=== PATIENT | female | born 1985 | race African-American/Black ===

== ENCOUNTER 2020-04-16 08:53 | Emergency (ER) | payer MEDICAID ==
[~2020-04-16] VITALS: Ht 162.6 cm; Wt 112.0 kg
[2020-04-16] MEDS ORDERED: MORPHINE SULFATE 4 MG/ML CPJ (NOT FOR IM USE) IV STA (09:34)
[2020-04-16] MEDS ORDERED: PROCHLORPERAZINE 10MG/2ML VIAL IV PRN (09:45)
[2020-04-16 10:21] LABS: BASOPHILS % 1.1 % (0.0-2.0); EOSINOPHILS % 1.2 % (0.0-5.0); HEMATOCRIT. 28.9 % (36.0-48.0); HEMOGLOBIN. 8.9 g/dL (12.0-16.0); LYMPHOCYTES % 23.4 % (20.0-50.0); MEAN CORPUSCULAR HEMOGLOBIN 21.5 pg (28.0-32.0); MEAN CORPUSCULAR VOLUME 69.6 fL (81.0-99.0); MEAN PLATELET VOLUME 8.8 fl (7.4-10.4); MONOCYTES % 4.3 % (2.0-8.0); PLATELET 371 x1000/uL (130-400); RED BLOOD CELL COUNT 4.16 mill/uL (4.2-5.4); RED CELL DISTRIBUTION WIDTH 17.5 % (11.6-14.6)
[2020-04-16 10:30] LABS: CHLORIDE 105 mEq/L (98-107)
[2020-04-16 10:33] LABS: D-DIMER 0.72 mg/L FEU (<0.50); PROTHROMBIN TIME 10.7 sec (9.6-11.0)
[2020-04-16 10:34] LABS: ETHANOL BLOOD < 10 mg/dL
[2020-04-16 11:14] LABS: PLATELET ESTIMATE NORMAL
[2020-04-16] MEDS ORDERED: IOHEXOL-350 100 ML BOTTLE ONE (11:51)
[2020-04-16 12:08] LABS: CLARITY URINE CLOUDY (CLEAR); COLOR URINE YELLOW (YELLOW); KETONES URINE NEGATIVE (NEGATIVE); LEUKOCYTE ESTERASE URINE 2+ (NEGATIVE); NITRITE URINE NEGATIVE (NEGATIVE); OCCULT BLOOD URINE 3+ (NEGATIVE); PROTEIN URINE NEGATIVE (NEGATIVE); SPECIFIC GRAVITY URINE 1.018 (1.005-1.030); UROBILINOGEN URINE 0.2 E.U./dL (0.2-1.0)
[2020-04-16 12:23] LABS: *AMPHETAMINES SCREEN URINE NEGATIVE (NEGATIVE); *BARBITURATES SCREEN URINE NEGATIVE (NEGATIVE); *BENZODIAZEPINES SCREEN URINE NEGATIVE (NEGATIVE)
[2020-04-16 12:24] LABS: *COCAINE SCREEN URINE NEGATIVE (NEGATIVE); CANNABINOID URINE SCREEN NEGATIVE (NEGATIVE); METHADONE URINE SCREEN NEGATIVE (NEGATIVE); PHENCYCLIDINE URINE SCREEN NEGATIVE (NEGATIVE)
[2020-04-16 12:30] LABS: OPIATES URINE SCREEN PRESUMTIVE POSITIVE (NEGATIVE)
[2020-04-16] MEDS ORDERED: KETOROLAC 15MG/ML VIAL IV ONE (13:00)
[2020-04-16] MEDS ORDERED: CEFTRIAXONE 1 G PREMIX 50 ML IV NR (13:30)
[2020-04-16 13:42] VITALS: BP 150/91
== END 2020-04-16 14:10 | disposition home or self-care (01) ==
LOC: ER 09:00
DX: R51.9 Headache, unspecified (principal); R06.00 Dyspnea, unspecified; R42 Dizziness and giddiness; Z88.5 Allergy status to narcotic agent
CPT/HCPCS: 36415; 70450; 70496; 70498; 71045; 71275; 80053; 80305; 80320; 81003; 81025; 83880; 84484; 85025; 85379; 85610; 93005; 96365; 96375; 99285; J0696; J1885; J2270; Q9967; A4315; G0480